=== PATIENT | female | born 1980 | race Caucasian/White ===

== ENCOUNTER 2018-01-17 14:20 | Emergency (ER) | payer SELFPAY ==
[2018-01-17 14:22] VITALS: BP 167/100; PULSE 104; RESP 18; TEMP 36.3; O2SAT 96; BMI 35.6
--- NOTE | 2018-01-17 14:25 | NURSING ---
NO OLD EKGS
--- NOTE | 2018-01-17 14:42 | EKG12_ITS ---
Test Reason : PALP Blood Pressure : / mmHG Vent. Rate : 098 BPM Atrial Rate : 098 BPM P-R Int : 138 ms QRS Dur : 070 ms QT Int : 320 ms P-R-T Axes : 073 052 059 degrees QTc Int : 408 ms Normal sinus rhythm with sinus arrhythmia Biatrial enlargement Nonspecific ST abnormality Abnormal ECG Confirmed by LAUREEN DAO, TRESSA ([id number]), editorial director TAMMY YI ([id number] on 01/20/2018 3:12:02 PM Referred By: Confirmed By:TRESSA GARDUNO MD
--- NOTE | 2018-01-17 14:42 | RAD_ITS ---
STUDY: X-RAY CHEST REASON FOR EXAM: Female, 37 years old. Chest palpitation TECHNIQUE: Single AP portable view of the chest. COMPARISON: None. FINDINGS: The lungs are clear and expanded. There is no demonstrated pleural abnormality. Normal size heart. Normal mediastinum and cali. Normal visualized pulmonary arteries. Normal visualized aortic arch and descending thoracic aorta. Normal visualized thoracic spine. Normal visualized ribs, clavicles, and shoulders. There is no demonstrated abnormality of the visualized soft tissue structures of the upper abdomen. RAD/Chest 1 View (Portable) IMPRESSION: Normal x-ray examination of the chest. Electronically Signed: Eliza Cameron MD at 15:10 EDT Tel , Service support ,
[2018-01-17 15:00] LABS: Absolute Lymphocyte Count 1.04 X10^3/ul (0.83-4.51); Absolute Neutrophil Count 5.1 X10^3/uL (2.0-7.7); Basophil# 0.03 X10^3/uL; Basophil% 0.4 % (0-1); Eosinophil# 0.13 X10^3/uL; Eosinophils% 1.9 % (0-5); Hematocrit 42.7 % (37-47); Hemoglobin 14.1 g/dl (12.0-15.0); Lymphocyte # 1.04 X10^3/ul (4.0); Lymphocyte % 15.2 % (19-41); Mean Corpuscular Hgb 27.8 pg (27.0-32.0); Mean Corpuscular Volume 84.2 fL (81-99); Mean Platelet Vol. 9.9 fl (6.2-12.0); Monocyte# 0.58 X10^3/uL; Monocyte% 8.5 % (0-10); Neutrophil # 5.07 X10^3/uL (2.7-7.7); POSITIVE COUNT NO; POSITIVE DIFFERENTIAL NO; POSITIVE MORPHOLOGY NO; Platelet Count 246 K/mm3 (150-450); RBC Distribution Width CV 14.6 % (11.6-14.6); RBC Distribution Width SD 44.1 fl (35.1-43.9); Red Blood Count 5.07 M/mm3 (4.2-5.4); White Blood Count 6.9 K/mm3 (4.4-11.0)
[2018-01-17 15:13] LABS: Anion Gap 9 (5-15); BUN 11 mg/dL (7-18); BUN/Creat Ratio 14.4 RATIO (10-20); Calcium,Total 9.4 mg/dL (8.5-10.1); Chloride 106 mmol/L (98-107); Creatinine, Serum 0.77 mg/dL (0.55-1.02); EST Glomerular Filtration Rate 90 mL/min (>60); Est Glom Filt Rate - Afr Amer 109 mL/min (>60); Estimated Creatinine Clearance 93.65 ml/min; Glucose 111 mg/dL (74-106); Potassium 3.9 mmol/L (3.5-5.1); Sodium Level 140 mmol/L (136-145)
--- NOTE | 2018-01-17 15:14 | ED.VISSUMM ---
- ER Visit Summary Date of Service: 01/17/18 Chief Complaint: Palpitations History of Present Illness: The patient is a 37 F significant past medical or surgical history. Currently on no medications. States 2 years ago she had an episode of palpitations. Never had it evaluated. Several hours as today while sitting at home she had palpitations started again. She states it feels like my heart is skipping beats. She denies any chest pain. She denies any shortness of breath. She has not had any syncope or near syncope. States otherwise she has been feeling well. Denies any history of thyroid problems. No hair loss. No weight change. No hot or cold intolerances. States she only drinks decaffeinated coffee and one cup per day. She has never had any cardiac history. Denies any recent travel, surgery, hemoptysis or leg swelling. Physical Examination: Well-appearing female. Vital signs are stable and afebrile. Pulse ox is 96% on room air no signs of hypoxia. She is in no distress. HEENT exam unremarkable. Pupils round reactive light. Moist mucous membranes. Neck nontender. No thyromegaly. No lymphadenopathy. Lungs clear to auscultation bilaterally. Heart regular rhythm rate in the mid to high 90s no murmur. Abdomen soft and nontender. She is moving all 4 extremities. The neurovascular intact. Equal symmetrical mill helper strength. Equal symmetrical dorsi plantarflexion. Calves are nontender without edema or cords. Back exam nontender. Neurologically she is awake and alert with no focal motor deficits. Test Results: Patient will undergo cardiac workup. Her initial EKG shows a sinus rhythm a rate of 98 with no acute signs of MA or ischemia. No obvious signs of dysrhythmia. Portable chest x-ray one view shows normal cardiac silhouette and mediastinum. CBC normal. BMP normal. Troponin normal. Emergency Department Course and Treatment: Currently the patient is in a sinus rhythm. Repeat exam she is doing well at 1600. Discussed all test results with both her and her father. She will be discharged home. Treatment Plan: Outpatient follow-up with possible cardiac monitoring. Disposition: Discharge Impression: Acute palpitations of uncertain etiology This note was generated with [employer] software. It may contain incorrect words, spelling, and punctuation that were not noted in review of the chart prior to signing ED Disposition - Plan for ED Patient: Disposition: Home or Assisted Living Chief Complaint: Palpitations Instructions: ED Palpitations Referrals: Gonzalo Mireles MD [STAFF PHYSICIAN] - As soon as possible Additional Instructions: Return if feeling worse, chest pain or failure to pass out. Otherwise follow-up as an outpatient with the primary care physician I referred you to or a physician of your choice.
[2018-01-17 15:17] VITALS: BP 124/93; PULSE 101; RESP 15; O2SAT 96
--- NOTE | 2018-01-17 15:18 | ED.DCSUM_ITS ---
- ER Visit Summary Date of Service: 01/17/18 Chief Complaint: Palpitations History of Present Illness: The patient is a 37 F significant past medical or surgical history. Currently on no medications. States 2 years ago she had an episode of palpitations. Never had it evaluated. Several hours as today while sitting at home she had palpitations started again. She states it feels like my heart is skipping beats. She denies any chest pain. She denies any shortness of breath. She has not had any syncope or near syncope. States otherwise she has been feeling well. Denies any history of thyroid problems. No hair loss. No weight change. No hot or cold intolerances. States she only drinks decaffeinated coffee and one cup per day. She has never had any cardiac history. Denies any recent travel, surgery, hemoptysis or leg swelling. Physical Examination: Well-appearing female. Vital signs are stable and afebrile. Pulse ox is 96% on room air no signs of hypoxia. She is in no distress. HEENT exam unremarkable. Pupils round reactive light. Moist mucous membranes. Neck nontender. No thyromegaly. No lymphadenopathy. Lungs clear to auscultation bilaterally. Heart regular rhythm rate in the mid to high 90s no murmur. Abdomen soft and nontender. She is moving all 4 extremities. The neurovascular intact. Equal symmetrical correction officer supervisor strength. Equal symmetrical dorsi plantarflexion. Calves are nontender without edema or cords. Back exam nontender. Neurologically she is awake and alert with no focal motor deficits. Test Results: Patient will undergo cardiac workup. Her initial EKG shows a sinus rhythm a rate of 98 with no acute signs of ND or ischemia. No obvious signs of dysrhythmia. Portable chest x-ray one view shows normal cardiac silhouette and mediastinum. CBC normal. BMP normal. Troponin normal. Emergency Department Course and Treatment: Currently the patient is in a sinus rhythm. Repeat exam she is doing well at 1600. Discussed all test results with both her and her father. She will be discharged home. Treatment Plan: Outpatient follow-up with possible cardiac monitoring. Disposition: Discharge Impression: Acute palpitations of uncertain etiology This note was generated with [employer] software. It may contain incorrect words, spelling, and punctuation that were not noted in review of the chart prior to signing ED Disposition - Plan for ED Patient: Disposition: Home or Assisted Living Chief Complaint: Palpitations Instructions: ED Palpitations Referrals: Gonzalo Mireles MD [STAFF PHYSICIAN] - As soon as possible Additional Instructions: Return if feeling worse, chest pain or failure to pass out. Otherwise follow-up as an outpatient with the primary care physician I referred you to or a physician of your choice.
--- NOTE | 2018-01-17 15:20 | ED.DEP ---
ED Disposition - Plan for ED Patient: Disposition: Home or Assisted Living Chief Complaint: Palpitations Instructions: ED Palpitations Referrals: Gonzalo Mireles MD [STAFF PHYSICIAN] - As soon as possible Additional Instructions: Return if feeling worse, chest pain or failure to pass out. Otherwise follow-up as an outpatient with the primary care physician I referred you to or a physician of your choice.
[2018-01-17 16:13] VITALS: BP 129/92; PULSE 100; RESP 18; O2SAT 98
== END 2018-01-17 16:14 | disposition home or self-care (01) ==
PROVIDERS: Emergency Provider Emergency Medicine
DX: R00.2 Palpitations (principal)
CPT/HCPCS: 71045; 80048; 84484; 85025; 93005; 99284; A4216